=== PATIENT | female | born 1960 | race American Indian/Alaskan Native ===

== ENCOUNTER 2018-05-19 09:03 | Outpatient (CLI) | payer BC ==
--- NOTE | 2018-05-19 10:19 | Mammography Report ---
LEFT DIGITAL DIAGNOSTIC MAMMOGRAM with CAD and LEFT BREAST ULTRASOUND: 05/19/18 09:03:00 CLINICAL: Left outer breast pain. COMPARISON:08/14/16. She had a more recent bilateral mammogram at [place] but it is not available. FINDINGS: The breast is mostly fatty with a few residual upper outer fibroglandular densities.No mass, architectural distortion or suspicious calcifications. Ultrasound of the upper outer left breast was performed and demonstrated normal fatty and fibroglandular structures. No mass, cyst or shadowing. Ultrasound of the left axilla demonstrated a single lymph node with benign morphology measuring 9 x 8 x 5 mm. IMPRESSION: Negative mammogram and negative left breast ultrasound. BI-RADS CATEGORY: 1 - - Negative RECOMMENDATION: Clinical followup and routine mammographic screening in one year. ACR BI-RADS MAMMOGRAPHIC CODES: 0 = Needs additional imaging evaluation; 1 = Negative; 2 = Benign; 3 = Probably benign; 4 = Suspicious; 5 = Malignant; 6 = Known biopsy-proven malignancy COMMENT: 1. Dense breast tissue, i.e., adenosis, fibrocystic changes, etc., may obscure an underlying neoplasm. 2. Approximately 10% of cancers are not detected with mammography. 3. A negative mammography report should not delay biopsy if a clinically suspicious mass is present. COMMENT: Patient follow-up letters are generated by our [employer] application.
== END 2018-05-19 09:04 | disposition home or self-care (01) ==
LOC: SPVWC 09:03
PROVIDERS: ATTEND Internal Medicine
DX: N64.4 Mastodynia (principal)